=== PATIENT | female | born 1995 | race Caucasian/White ===

== ENCOUNTER 2019-09-22 04:36 | Inpatient (IN) | payer OTHER ==
[2019-09-22 05:17] LABS: Absolute Neutrophil Ct (ANC) 11.48 (1.4-6.9); BASOPHIL % 0.3 % (0.0-0.4); Basophil (Absolute #) 0.04 (0-0.4); Eosinophil % 0.5 % (0.00-5.0); Eosinophil (Absolute #) 0.08 (0-0.5); Hematocrit 39.7 % (35-47); Hemoglobin 13.7 gm/dl (12.0-16.0); Lymphocyte (Absolute #) 2.24 (1.0-4.6); Lymphocytes % 15.3 % (24.0-44.0); Mean Cell Volume 86.3 fl (78-100); Mean Corpuscular Hemoglobin 29.8 pg (26-32); Mean Corpuscular Hgb Concent. 34.5 g/dl (32-36); Mean Platelet Volume 11.4 fl (7.5-11.0); Monocyte (Absolute #) 0.84 (0.0-1.3); Monocytes % 5.7 % (0.0-12.0); Neutrophil % 78.2 % (36.0-66.0); Platelet Count 212 K/mm3 (150-450); Red Cell Distribution Width 13.3 % (11.5-14.0); White Blood Count 14.7 K/mm3 (4.0-10.5)
[2019-09-22 05:28] LABS: Appearance SLIGHTLY CLOUDY (CLEAR); Bilirubin NEGATIVE (NEGATIVE); Blood NEGATIVE Ery/ul (0-5); Epithelial Cells RARE /HPF (FEW); Glucose NEGATIVE (NEGATIVE); Ketones MODERATE (NEGATIVE); Leukocyte Esterase NEGATIVE (NEGATIVE); Mucus SLIGHT /HPF (NEGATIVE); Nitrite NEGATIVE (NEGATIVE); Protein,Urine Dip 30 (Negative); Specific Gravity 1.019 (1.005-1.025); Urobilinogen NEGATIVE mg/dL (0-1); WBC 0-2 /HPF (0-5)
[2019-09-22 05:30] LABS: INR 1.03 (0.8-3.0); PROTIME 11.6 SECONDS (9.95-12.35)
[2019-09-22 05:37] LABS: Amphetamine,Urine NEGATIVE (NEGATIVE); Barbiturate,Urine NEGATIVE (NEGATIVE); Benzodiazepine,Urine NEGATIVE (NEGATIVE); Cocaine,Urine NEGATIVE (NEGATIVE); Methadone,Urine NEGATIVE (NEGATIVE); Opiate,Urine NEGATIVE (NEGATIVE); PCP,Urine NEGATIVE (NEGATIVE); THC,Urine POSITIVE (NEGATIVE)
[2019-09-22] MEDS ORDERED: Reglan 10 MG/2 ML IV SCH (06:00)
[2019-09-22] MEDS ORDERED: SOD CITRATE-CITRIC ACID SOLN PO ONE (06:00)
[2019-09-22] MEDS ORDERED: Pepcid 20 MG VIAL IV SCH (06:00)
[2019-09-22] MEDS ORDERED: Lactated Ringers 1,000 ML IV SCH ×2 (06:00→07:30)
[2019-09-22 06:27] LABS: ABO TYPING B; Antibody Screen NEGATIVE (NEGATIVE); RH TYPING NEGATIVE
[2019-09-22] MEDS ORDERED: CEFAZOLIN 2 GM-D5W BAG** 2 GM/50 ML ML IV SCH (07:00)
[2019-09-22] MEDS ORDERED: Astramorph-Pf 5 MG/10 ML ONE (07:20)
[2019-09-22] MEDS ORDERED: Ambien 10 MG PO PRN (09:00)
[2019-09-22] MEDS ORDERED: CLARITIN 10 MG PO PRN (09:00)
[2019-09-22] MEDS ORDERED: HOLD NARCOTIC ANALGESICS AND SEDATIVES X24 HR MC PRN (09:00)
[2019-09-22] MEDS ORDERED: CORTISONE 1% CREAM TP PRN (09:00)
[2019-09-22] MEDS ORDERED: BENADRYL 50 MG/ML IV PRN (09:00)
[2019-09-22] MEDS ORDERED: Mylicon 80MG PO PRN (09:00)
[2019-09-22] MEDS ORDERED: DEMEROL 50 MG IV PRN (09:00)
[2019-09-22] MEDS ORDERED: Narcan 0.4 MG/ML IV PRN (09:00)
[2019-09-22] MEDS ORDERED: LANSINOH 40 GM TOP PRN (09:00)
[2019-09-22] MEDS ORDERED: Adacel Vial IM ONE (09:00)
[2019-09-22] MEDS ORDERED: Zofran 4 MG/2 ML VIAL IV PRN (09:00)
[2019-09-22] MEDS ORDERED: Dermoplast Spray TP PRN (09:00)
--- NOTE | 2019-09-22 09:33 | OP ---
SURGERY DATE/TIME: 09/22/2019 0755 PREOPERATIVE DIAGNOSIS: Term intrauterine , previous section. POSTOPERATIVE DIAGNOSIS: Term intrauterine , previous section, delivered. PROCEDURE: Repeat lower uterine segment transverse incision section. SURGEON: Dr. Espino. ANESTHESIA: Spinal. HISTORY: The patient is a 24 year old 2, now para 2, white female who desired to have elective repeat section. The patient was appraised of the risks of the procedure including the risk of wound infection, possible bleeding requiring transfusion, possible injury to intra-abdominal organs and laceration to the baby. The patient verbalized her understanding and desired to have the procedure performed. DESCRIPTION OF PROCEDURE: The patient was prepped and draped in the supine position. After adequate regional anesthesia was confirmed, a Pfannenstiel incision was made over the previous scar and carried down sharply through the fascia which was divided in a horizontal fashion. The rectus muscles were then bluntly and sharply dissected away from the overlying fascia and bluntly retracted laterally. The peritoneal cavity was then entered. A bladder flap was developed and the bladder was retracted inferiorly. The uterus was scored in a horizontal fashion and entered in the midline. A white male was delivered through the abdominal wound. The cord was doubly clamped and divided between the clamps and the baby was handed off for further care. The placenta was then manually removed from the uterus. The uterus was exteriorized and wrapped in moist gauze. The wound edges were then grasped with Duarte clamps and reapproximated using 1-0 chromic suture in a running, interlocking fashion. The cul-de-sac area was swabbed clear of blood and amniotic fluid. The uterus was replaced in the abdominal cavity. Paracolic gutters were also swabbed clear of blood of amniotic fluid. The peritoneum was then repaired using 3-0 chromic sutures in running fashion. The fascia was repaired using 0 Vicryl suture in running fashion. The skin edges were reapproximated using 4-0 Vicryl sutures in subcuticular fashion and reinforced with Steri-Strips. The sponge, needle and instrument counts were reported as correct at the end of the procedure. The patient did receive 2 gm of Cefazolin intraoperatively. She was taken back to the recovery room in good condition.
[2019-09-22] MEDS ORDERED: Lactated Ringers 1,000 ML IV ONE (09:44)
[2019-09-22 12:54] LABS: Appearance CLOUDY (CLEAR); Bilirubin NEGATIVE (NEGATIVE); Blood NEGATIVE Ery/ul (0-5); Calcium Oxalate Crystals 0-2 /HPF (NEGATIVE); Epithelial Cells RARE /HPF (FEW); Glucose NEGATIVE (NEGATIVE); Ketones MODERATE (NEGATIVE); Leukocyte Esterase NEGATIVE (NEGATIVE); Mucus SLIGHT /HPF (NEGATIVE); Nitrite NEGATIVE (NEGATIVE); Non-Squamous Epithelial Cells RARE /HPF (FEW); Protein,Urine Dip 100 (Negative); RBC 0-2 /HPF (0-2); Specific Gravity 1.028 (1.005-1.025); Urobilinogen NEGATIVE mg/dL (0-1)
[2019-09-22] MEDS: Dextrose 5%-Lr IV Solution 1000 ML 1,000 ML IV SCH ×2 (14:36→22:12)
[2019-09-22 20:36] LABS: Absolute Neutrophil Ct (ANC) 21.52 (1.4-6.9); BASOPHIL % 0.1 % (0.0-0.4); Basophil (Absolute #) 0.02 (0-0.4); Eosinophil (Absolute #) 0 (0-0.5); Hemoglobin 12.5 gm/dl (12.0-16.0); Lymphocyte (Absolute #) 1.47 (1.0-4.6); Lymphocytes % 6.2 % (24.0-44.0); Mean Cell Volume 86.3 fl (78-100); Mean Corpuscular Hgb Concent. 34.7 g/dl (32-36); Mean Platelet Volume 11.3 fl (7.5-11.0); Monocyte (Absolute #) 0.89 (0.0-1.3); Monocytes % 3.7 % (0.0-12.0); Platelet Count 230 K/mm3 (150-450); Red Blood Count 4.17 M/mm3 (4.1-5.4); Red Cell Distribution Width 12.8 % (11.5-14.0); White Blood Count 23.9 K/mm3 (4.0-10.5)
[2019-09-22] MEDS ORDERED: CEFAZOLIN 2 GM-D5W BAG** 2 GM/50 ML ML IV ONE (21:00)
[2019-09-22] MEDS: Colace 100 MG PO SCH (21:10)
[2019-09-22] MEDS: MOTRIN 400 MG PO PRN (23:23)
[2019-09-23] MEDS ORDERED: CEFAZOLIN 2 GM-D5W BAG** 2 GM/50 ML ML IV ONE (05:00)
[2019-09-23] MEDS: MOTRIN 400 MG PO PRN ×3 (07:44→22:32)
[2019-09-23] MEDS: Colace 100 MG PO SCH ×2 (13:50→21:25)
[2019-09-23] MEDS: FERREX 150 PO SCH (13:50)
[2019-09-23] MEDS: TYLENOL EXTRA STRENGTH 500 MG PO PRN (20:16)
[2019-09-24] MEDS: TYLENOL EXTRA STRENGTH 500 MG PO PRN (02:20)
[2019-09-24 06:49] LABS: Absolute Neutrophil Ct (ANC) 5.65 (1.4-6.9); BASOPHIL % 0.3 % (0.0-0.4); Basophil (Absolute #) 0.03 (0-0.4); Eosinophil % 0.9 % (0.00-5.0); Eosinophil (Absolute #) 0.08 (0-0.5); Hematocrit 36.8 % (35-47); Hemoglobin 12.3 gm/dl (12.0-16.0); Lymphocyte (Absolute #) 2.71 (1.0-4.6); Lymphocytes % 29.8 % (24.0-44.0); Mean Cell Volume 89.8 fl (78-100); Mean Corpuscular Hgb Concent. 33.4 g/dl (32-36); Mean Platelet Volume 11.4 fl (7.5-11.0); Monocyte (Absolute #) 0.63 (0.0-1.3); Monocytes % 6.9 % (0.0-12.0); Neutrophil % 62.1 % (36.0-66.0); Platelet Count 187 K/mm3 (150-450); Red Cell Distribution Width 13.2 % (11.5-14.0); White Blood Count 9.1 K/mm3 (4.0-10.5)
[2019-09-24] MEDS: MOTRIN 400 MG PO PRN (08:42)
[2019-09-24] MEDS: FERREX 150 PO SCH (09:53)
[2019-09-24] MEDS: Colace 100 MG PO SCH (09:53)
[2019-09-24 14:32] VITALS: BP 133/62; PULSE 67; O2SAT 98
== END 2019-09-24 10:55 | disposition home or self-care (01) | DRG 788 ==
LOC: OB 04:36 → EDSTATUS 09-25 14:00
PROVIDERS: ADMIT Family Medicine; ATTEND Family Medicine
PROC: 10D00Z1 Extraction of Products of Conception, Low, Open Approach (ICD-10-PCS; principal; 2019-09-22)
DX: O34.211 Maternal care for low transverse scar from previous cesarean delivery (principal); Z3A.38 38 weeks gestation of pregnancy; Z37.0 Single live birth
CPT/HCPCS: 36415; 64488; 76937; 76942; 80307; 81001; 85025; 85610; 85730; 86850; 86900; 86901; 87086; 87340; 94799; J0690; J1200; J2274; A9270-GY